=== PATIENT | female | born 1945 | race Caucasian/White ===

== ENCOUNTER 2019-08-23 09:58 | Emergency (ER) | payer MEDICARE ==
[~2019-08-23] VITALS: Ht 157.5 cm; Wt 105.5 kg
[~2019-08-23 09:58] MED LIST: AMLO1TAB PO; CANA100T PO; CHOL2000 PO; GARL200T PO; GLIM4TAB7 PO; IBUP-24 PO; LEVO175T2 PO; LOVA40TA76 PO; OMEG10006 PO; UBID100C7 PO; WEL625T PO
[2019-08-23 10:05] VITALS: BP 154/84
[2019-08-23] MEDS ORDERED: ketorolac tromethamine 15mg/ml inj. IM STA (11:49)
[2019-08-23] MEDS ORDERED: LIDOcaine 5% patch TP STA (11:49)
== END 2019-08-23 12:19 | disposition home or self-care (01) ==
LOC: ER 09:58
DX: S39.012A Strain of muscle, fascia and tendon of lower back, initial encounter (principal); E78.00 Pure hypercholesterolemia, unspecified; I10 Essential (primary) hypertension; E11.9 Type 2 diabetes mellitus without complications; Z90.710 Acquired absence of both cervix and uterus; Z98.890 Other specified postprocedural states; Z88.8 Allergy status to other drugs, medicaments and biological substances; Z91.011 Allergy to milk products; Z79.899 Other long term (current) drug therapy; X50.1XXA Overexertion from prolonged static or awkward postures, initial encounter; Y93.89 Activity, other specified; Y92.89 Other specified places as the place of occurrence of the external cause; Y99.9 Unspecified external cause status
CPT/HCPCS: 96372; 99284; J1885

== ENCOUNTER 2020-10-14 15:42 | Emergency (ER) | payer MEDICARE ==
[~2020-10-14] VITALS: Ht 157.5 cm; Wt 10.3 kg
[2020-10-14 20:05] VITALS: BP 177/80
== END 2020-10-14 20:07 | disposition home or self-care (01) ==
LOC: ER 15:42
DX: M25.511 Pain in right shoulder (principal); M54.9 Dorsalgia, unspecified; M25.551 Pain in right hip; E78.00 Pure hypercholesterolemia, unspecified; I10 Essential (primary) hypertension; E11.9 Type 2 diabetes mellitus without complications; Z98.891 History of uterine scar from previous surgery; Z90.710 Acquired absence of both cervix and uterus; Z98.890 Other specified postprocedural states; Z90.89 Acquired absence of other organs; Z91.040 Latex allergy status; Z88.8 Allergy status to other drugs, medicaments and biological substances; Z79.2 Long term (current) use of antibiotics; Z79.899 Other long term (current) drug therapy; W13.8XXA Fall from, out of or through other building or structure, initial encounter; Z91.81 History of falling; Y93.89 Activity, other specified; Y92.89 Other specified places as the place of occurrence of the external cause; Y99.8 Other external cause status
CPT/HCPCS: 73030; 73502; 99284

== ENCOUNTER 2021-05-07 05:25 | Inpatient (IN) | payer MEDICARE ==
[2021-05-01 14:36] LABS: BASOPHILS % (AUTO) 0.6 % (0-1); EOSINOPHILS # (AUTO) 0.1 X10'3 (0-0.9); EOSINOPHILS % (AUTO) 1.7 % (0-6); LYMPHOCYTES # (AUTO) 2.6 X10'3 (1.1-4.8); LYMPHOCYTES % (AUTO) 33.7 % (21-51); MEAN CORPUSCULAR HEMOGLOBIN 31.6 PG (27.0-31.0); MEAN CORPUSCULAR HGB CONC 34.8 g/dL (33.0-36.5); MEAN CORPUSCULAR VOLUME 90.7 FL (78-98); MEAN PLATELET VOLUME 8.3 FL (7.4-10.4); MONOCYTES # (AUTO) 0.7 X10'3 (0-0.9); MONOCYTES % (AUTO) 8.7 % (2-12); NEUTROPHILS # (AUTO) 4.3 X10'3 (1.8-7.7); NEUTROPHILS % (AUTO) 55.3 % (42-75); PRE OP HEMATOCRIT 36.1 % (35.0-45.0); PRE OP HEMOGLOBIN 12.6 g/dL (12.0-16.0); PRE OP PLATELET COUNT 280 X10'3 (140-440); RED BLOOD COUNT 3.98 X10'6 (4.20-5.60); RED CELL DISTRIBUTION WIDTH 13.2 % (11.5-14.5)
[2021-05-01 14:58] LABS: ALKALINE PHOSPHATASE 94 IU/L (46-116); BLOOD UREA NITROGEN 26 MG/DL (7-18); BUN/CREATININE RATIO 19.3 (6.6-38.0); CALCIUM 9.1 MG/DL (8.5-10.1); CHLORIDE 106 MMOL/L (99-107); CREATININE 1.35 MG/DL (0.40-0.90); PRE OP ALT 27 U/L (30-65); PRE OP ANION GAP 12 (8-16); PRE OP AST 14 U/L (10-37); PRE OP BILIRUB, TOTAL 0.3 MG/DL (0.0-1.0); PRE OP GLUCOSE 127 MG/DL (70-104); PRE OP POTASSIUM 3.9 MMOL/L (3.4-5.1); PRE OP SODIUM 143 MMOL/L (135-145); TOTAL CARBON DIOXIDE 25.5 MMOL/L (24-32); TOTAL PROTEIN 7.9 G/DL (6.4-8.2); eGFR 38 ML/MIN
[2021-05-01 15:23] LABS: HEMOGLOBIN A1C 7.1 % (4.5-6.2)
[2021-05-07] VITALS (15 sets, daily range): BP systolic 104–180; BP diastolic 51–77
[~2021-05-07] VITALS: Ht 160 cm; Wt 103.9 kg
[~2021-05-07 05:25] MED LIST changes: +AMLO10TA13 PO; -AMLO1TAB PO; -CANA100T PO; -CHOL2000 PO; -GARL200T PO; -GLIM4TAB7 PO; +HYDR25TA5 PO; -IBUP-24 PO; +INSU10VI SQ; +LEVO25TA7 PO; -LOVA40TA76 PO; -OMEG10006 PO; -UBID100C7 PO; +VALS320T17 PO; +ringers solution, lacted 1,000 ML IV SCH
[2021-05-07] MEDS ORDERED: cefazolin/dext.iso 2gm/50ml 50 ML IV ONE (05:30)
[2021-05-07] MEDS ORDERED: albuterol 2.5 MG/3 ML nebule NEB PRN (05:30)
[2021-05-07] MEDS ORDERED: VANCOMYCIN 1,500MG inj. 1,500 MG in normal saline 500ml IV soln 300 ML IV ONE (05:30)
[2021-05-07] MEDS ORDERED: tranexamic acid 650mg tablet PO ONE (05:30)
[2021-05-07] MEDS ORDERED: famotidine 20mg tablet PO ONE (05:30)
[2021-05-07] MEDS ORDERED: ketorolac trometh. 30mg/ml inj. ONE (06:36)
[2021-05-07] MEDS ORDERED: ROPIVAcaine 0.5% (5mg/ml) 30ml vial ONE ×2 (06:37→07:05)
[2021-05-07] MEDS ORDERED: ondansetron/PF 4mg/2ml inj ONE (07:00)
[2021-05-07] MEDS ORDERED: sevoflurane 250ml liquid IH ONE (07:00)
[2021-05-07] MEDS ORDERED: midazolam 1 mg/ML 2ml injection ONE (07:05)
[2021-05-07] MEDS ORDERED: fentaNYL/PF 50MCG/1 ML 2ML syringe ONE (07:05)
[2021-05-07] MEDS ORDERED: propofol inj 20 ML IV ONE (07:27)
[2021-05-07] MEDS ORDERED: LIDOcaine 1%/PF 5ML 10 MG/ML VIAL ONE (07:27)
[2021-05-07] MEDS ORDERED: dexamethasone sod phosphate 4mg/ml inj. ONE (07:39)
[2021-05-07] MEDS ORDERED: meperidine/PF 25mg/ml syringe IV PRN ×3 (08:25)
[2021-05-07] MEDS ORDERED: proCHLORperazine 10 MG/2 ml inj IV PRN (08:25)
[2021-05-07] MEDS ORDERED: morphine 2 MG/ML inj. syringe IV PRN (08:25)
[2021-05-07] MEDS ORDERED: ROPIVAcaine 0.2% (10 MG/5 ML) BOLUS INJECTION INTERSCALE PRN (08:25)
[2021-05-07] MEDS ORDERED: morphine 4 MG/ML inj SYRINge IV PRN (08:25)
[2021-05-07] MEDS ORDERED: ondansetron/PF 4mg/2ml inj IV PRN ×2 (08:25→09:05)
[2021-05-07] MEDS ORDERED: ringers solution, lacted 1,000 ML IV SCH (08:25)
[2021-05-07] MEDS ORDERED: oxyCODONE IR 5mg (immed. release) tablet PO PRN ×2 (09:05)
[2021-05-07] MEDS ORDERED: HYDROmorphone inj. 0.5 MG/0.5 ML DISP.SYRIN IV PRN (09:05)
[2021-05-07] MEDS ORDERED: diphenhydrAMINE 25mg capsule PO PRN ×2 (09:05)
[2021-05-07] MEDS ORDERED: acetaminophen 325mg tablet PO PRN (09:05)
[2021-05-07] MEDS ORDERED: magnesium hydroxide 30ml (MOM) UD suspension PO PRN (09:05)
[2021-05-07] MEDS ORDERED: HYDROmorphone 1 mg/ml syringe IV PRN (09:05)
[2021-05-07] MEDS ORDERED: bisacodyl 10mg suppository rectal RC PRN (09:05)
[2021-05-07] MEDS ORDERED: HYDROchlorothiazide 25mg tablet PO PRN (09:05)
--- NOTE | 2021-05-07 09:55 | NUR ---
Patient in room PAS IN 900. I have received report from Viviane Barragan RN and had the opportunity to ask questions and assume patient care.
[2021-05-07] MEDS ORDERED: ROPIVAcaine 0.2%/PF PUMP/bolus 545 ML INTERSCALE SCH (10:00)
--- NOTE | 2021-05-07 10:00 | NUR ---
Patient in room [facility] 346. I have received report from Viviane Barragan rn and had the opportunity to ask questions and assume patient care.
--- NOTE | 2021-05-07 10:00 | NUR ---
PT AWAKE ALERT VSS NO C/O PAIN DRESSING TO RIGHT SHOULDER CDI YONY PO'S MEETS CRITERIA TO DC TO ROOM REPORT CALLED TO ISAURA VASQUEZ PT TRANSPORT VIS BED TO ROOM. SON CALLED AND UPDATED ON CONDITION AND ROOM #. Addendum: 05/07/21 at 1001 by Viviane Tate RN Amended: Links added.
[2021-05-07] MEDS: acetaminophen 325mg tablet PO SCH ×2 (14:17→19:23)
[2021-05-07] MEDS: gabapentin 300mg capsule PO SCH ×2 (14:17→21:58)
[2021-05-07] MEDS: potassium cl 20mEq in 1/2 NS 1,000 ML IV SCH ×3 (14:18→23:42)
[2021-05-07] MEDS ORDERED: glucagon, human recombinant 1mg kit SUBCUT PRN (14:45)
[2021-05-07] MEDS ORDERED: dextrose 50%-water 50ml dispensing syringe IV PRN ×2 (14:45)
[2021-05-07] MEDS ORDERED: dextrose ORAL solution 15 GM/59 ML bottle PO PRN ×2 (14:45)
--- NOTE | 2021-05-07 15:00 | NUR ---
Noted pt with T2DM, well controlled for age with A1c 7.1%. DM education not warranted at this time. Will continue to follow. Addendum: 05/07/21 at [address] Amended: Links added.
--- NOTE | 2021-05-07 15:37 | NUR ---
took pt bs for lunch. it was 207 pt moved to level 2. when going to correct blood sugars, noticed there was the wrong insulin ordered. Called JODY Abraham and she ordered correct insulin replacements and said to start the insulin protocol tonight due to waiting for meds to be verified and entered.
[2021-05-07] MEDS: ceFAZolin/D5W- 1GM premix 50 ML IV SCH ×2 (17:15→23:48)
--- NOTE | 2021-05-07 18:30 | NUR ---
Problems reprioritized. Patient report given, questions answered & plan of care reviewed with Elder VASQUEZ.
[2021-05-07] MEDS: insulin Lispro (HumaLOG) vial - multi-dose SQ SCH ×2 (19:20→22:12)
[2021-05-07] MEDS ORDERED: vancomycin/NS 1 GM ADD-VANTAGE 250 ML IV SCH (20:00)
[2021-05-07] MEDS ORDERED: losartan 50mg tablet PO SCH (21:00)
[2021-05-07] MEDS ORDERED: sennosides 8.6mg tablet PO SCH (21:00)
[2021-05-07] MEDS ORDERED: insulin Lispro (HumaLOG) vial - multi-dose SQ SCH (21:00)
[2021-05-07] MEDS ORDERED: insulin glargine (Lantus) pen - multi-dose SQ SCH (21:00)
--- NOTE | 2021-05-07 22:58 | NUR ---
Student Medication Administration: For this medication-pass time frame, all medication were reviewed, dispensed, administered and documented per hospital policy by Iker Lamas and double checked all insulin administration.
--- NOTE | 2021-05-07 23:25 | NUR ---
Student documentation: I have reviewed interventions, assessments performed and documented by Iker Saldana [facility].
[2021-05-08 00:11] VITALS: BP 136/63
[2021-05-08] MEDS: acetaminophen 325mg tablet PO SCH ×3 (02:00→13:55)
[2021-05-08 03:45] VITALS: BP 157/63
[2021-05-08 06:21] LABS: BASOPHILS % (AUTO) 0.1 % (0-1); EOSINOPHILS % (AUTO) 0 % (0-6); HEMATOCRIT 30.3 % (35.0-45.0); HEMOGLOBIN 10.4 g/dl (12.0-16.0); LYMPHOCYTES # (AUTO) 1.6 X10'3 (1.1-4.8); LYMPHOCYTES % (AUTO) 13.3 % (21-51); MEAN CORPUSCULAR HEMOGLOBIN 31.4 PG (27.0-31.0); MEAN CORPUSCULAR HGB CONC 34.5 g/dL (33.0-36.5); MEAN PLATELET VOLUME 8.7 FL (7.4-10.4); MONOCYTES # (AUTO) 0.9 X10'3 (0-0.9); MONOCYTES % (AUTO) 7.6 % (2-12); NEUTROPHILS # (AUTO) 9.4 X10'3 (1.8-7.7); PLATELET COUNT 253 X10'3 (140-440); RED BLOOD COUNT 3.32 X10'6 (4.20-5.60); RED CELL DISTRIBUTION WIDTH 13.4 % (11.5-14.5)
[2021-05-08 06:43] LABS: ANION GAP 12 (8-16); CHLORIDE 103 MMOL/L (99-107); POTASSIUM 4.8 MMOL/L (3.5-5.1); SODIUM 136 MMOL/L (135-145); TOTAL CARBON DIOXIDE 21.4 MMOL/L (24-32)
--- NOTE | 2021-05-08 06:55 | NUR ---
Problems reprioritized. Patient report given, questions answered & plan of care reviewed with Nimo VASQUEZ.
[2021-05-08] MEDS: gabapentin 300mg capsule PO SCH ×2 (07:46→13:51)
[2021-05-08 08:00] VITALS: BP 135/47
[2021-05-08] MEDS ORDERED: levoTHYROXINE 175mcg tablet PO SCH (08:00)
[2021-05-08] MEDS ORDERED: colesevelam 625mg tablet PO SCH (08:00)
[2021-05-08] MEDS ORDERED: insulin Lispro (HumaLOG) vial - multi-dose SQ SCH (08:00)
[2021-05-08] MEDS ORDERED: amLODIPine 5mg tablet PO SCH (08:00)
[2021-05-08] MEDS ORDERED: aspirin 325mg tablet PO SCH (08:30)
[2021-05-08] MEDS: potassium cl 20mEq in 1/2 NS 1,000 ML IV SCH (09:05)
[2021-05-08] MEDS: insulin Lispro (HumaLOG) vial - multi-dose SQ SCH ×2 (09:11→14:00)
[2021-05-08 11:00] VITALS: BP 131/58
[2021-05-08 11:29] VITALS: BP 136/67
--- NOTE | 2021-05-08 15:35 | NUR ---
PT WAS STABLE FOR DISCHARGE. ALL DISCHARGE INFO WAS GONE OVER WITH NO FURTHER QUESTIONS. SHE HAD NO IV TO PREVIOUSLY IT BEING PULLED OUT. PT WAS WHEELED DOWN TO THE LOBBY AND PICKED UP BY HER SON. ALL BELONGINGS WENT WITH THE PT.
[2021-05-08] MEDS ORDERED: celeCOXIB 100mg capsule PO SCH (20:00)
[2021-05-09] MEDS ORDERED: levoTHYROXINE 25mcg tablet PO SCH (08:00)
[2021-05-09] MEDS ORDERED: acetaminophen 325mg tablet PO PRN (09:05)
== END 2021-05-08 15:34 | disposition home or self-care (01) | DRG 483 ==
LOC: UNDOADMIN 05:25 → PAS IN 05:25 → SUR 3N 10:15 → PAS IN 10:15
PROVIDERS: ADMIT Orthopaedic Surgery; ATTEND Orthopaedic Surgery
PROC: 0LS30ZZ Reposition Right Upper Arm Tendon, Open Approach (ICD-10-PCS; 2021-05-07)
PROC: 3E0T3BZ Introduction of Anesthetic Agent into Peripheral Nerves and Plexi, Percutaneous Approach (ICD-10-PCS; 2021-05-07)
PROC: 3E0T33Z Introduction of Anti-inflammatory into Peripheral Nerves and Plexi, Percutaneous Approach (ICD-10-PCS; 2021-05-07)
PROC: 0RRJ00Z Replacement of Right Shoulder Joint with Reverse Ball and Socket Synthetic Substitute, Open Approach (ICD-10-PCS; principal; 2021-05-07 07:00)
DX: M19.011 Primary osteoarthritis, right shoulder (principal); D62 Acute posthemorrhagic anemia; M75.121 Complete rotator cuff tear or rupture of right shoulder, not specified as traumatic; M75.21 Bicipital tendinitis, right shoulder; Z79.899 Other long term (current) drug therapy; Z79.4 Long term (current) use of insulin
CPT/HCPCS: 36415; 80051; 80053; 82948; 83036; 84443; 85025; 87081; 94760; 97110; 97161; 97530; A4618; A7000; C1776; G0378; J0690; J1100; J1815; J1885; J2250; J2405; J2704; J2795; J3010; J3370; J3480; J7040; J7120; U0003; U0005

== ENCOUNTER 2024-10-17 09:50 | Inpatient (IN) | payer MEDICARE ==
[~2024-10-17] VITALS: Ht 157.5 cm; Wt 111.4 kg
[~2024-10-17 09:50] MED LIST changes: +COLE625T29 PO; -WEL625T PO; -ringers solution, lacted 1,000 ML IV SCH
[2024-10-17 10:32] LABS: BASOPHILS % (AUTO) 0.5 % (0-1); EOSINOPHILS # (AUTO) 0.3 X10'3 (0-0.9); EOSINOPHILS % (AUTO) 5.4 % (0-6); HEMATOCRIT 30.9 % (35.0-45.0); HEMOGLOBIN 10.4 g/dl (12.0-16.0); LYMPHOCYTES # (AUTO) 1.4 X10'3 (1.1-4.8); LYMPHOCYTES % (AUTO) 23.5 % (21-51); MEAN CORPUSCULAR HEMOGLOBIN 30.5 PG (27.0-31.0); MEAN CORPUSCULAR HGB CONC 33.5 g/dL (33.0-36.5); MEAN CORPUSCULAR VOLUME 91.1 FL (78-98); MEAN PLATELET VOLUME 8.4 FL (7.4-10.4); MONOCYTES # (AUTO) 0.6 X10'3 (0-0.9); MONOCYTES % (AUTO) 10.9 % (2-12); NEUTROPHILS # (AUTO) 3.5 X10'3 (1.8-7.7); NEUTROPHILS % (AUTO) 59.7 % (42-75); PLATELET COUNT 210 X10'3 (140-440); RED BLOOD COUNT 3.39 X10'6 (4.20-5.60); RED CELL DISTRIBUTION WIDTH 13.8 % (11.5-14.5); WHITE BLOOD COUNT 5.9 X10'3 (4.5-11.0)
[2024-10-17 10:40] LABS: ALANINE AMINOTRANSFERASE 22 U/L (12-78); ALBUMIN 3.7 G/DL (3.4-5.0); ALBUMIN/GLOBULIN RATIO 0.9 (1.1-1.5); ALKALINE PHOSPHATASE 75 IU/L (46-116); ANION GAP 8 (8-16); ASPARTATE AMINO TRANSFERASE 18 U/L (10-37); BILIRUBIN,TOTAL 0.6 MG/DL (0.1-1.0); BLOOD UREA NITROGEN 31 MG/DL (7-18); BUN/CREATININE RATIO 24.4 (10.0-20.0); CALCIUM 8.9 MG/DL (8.5-10.1); CHLORIDE 104 MMOL/L (99-107); CREATININE 1.27 MG/DL (0.40-0.90); GLUCOSE 110 MG/DL (70-104); POTASSIUM 4.4 MMOL/L (3.5-5.1); SODIUM 138 MMOL/L (135-145); TOTAL PROTEIN 7.6 G/DL (6.4-8.2); eCRCL 27 ML/MIN; eGFR 40 ML/MIN
[2024-10-17 10:47] LABS: PRO BRAIN NATRIURETIC PEPTIDE 891 PG/ML (0-450)
[2024-10-17] MEDS: furosemide 10 MG/1 ML 10ml inj IV ONE (11:26)
[2024-10-17] MEDS ORDERED: potassium Cl 40MEQ/1/2NS 520ml 520 ML IV PRN (13:25)
[2024-10-17] MEDS ORDERED: acetaminophen 325mg tablet PO PRN ×2 (13:25)
[2024-10-17] MEDS ORDERED: magnesium Cl slow-release 64mg tablet PO PRN (13:25)
[2024-10-17] MEDS ORDERED: ondansetron/PF 4mg/2ml inj IV PRN (13:25)
[2024-10-17] MEDS ORDERED: magnesium sulf-water 2g/50mL 50 ML IV PRN (13:25)
[2024-10-17] MEDS ORDERED: magnesium sulf-water 4G/100mL 100 ML IV PRN (13:25)
[2024-10-17] MEDS ORDERED: potassium Cl 20 mEq SR tablet PO PRN ×2 (13:25)
[2024-10-17] MEDS ORDERED: HYDROcodone/acetaminophen 5mg/325mg tablet PO PRN (13:25)
[2024-10-17] MEDS ORDERED: DEXTROSE 15 GM of carb/4 tabs (each vial/BOTTLE has 4 tablets) PO PRN ×2 (13:50)
[2024-10-17] MEDS ORDERED: dextrose 50%-water 50ml dispensing syringe IV PRN ×2 (13:50)
[2024-10-17] MEDS ORDERED: glucagon, human recombinant 1mg kit SUBCUT PRN (13:50)
[2024-10-17] MEDS ORDERED: CLOP75TA34 PO (15:25)
[2024-10-17] MEDS ORDERED: ROSU20TA98 PO (15:25)
[2024-10-17] MEDS ORDERED: VALS160T30 PO (15:25)
[2024-10-17] MEDS ORDERED: CARV-50 PO (15:25)
[2024-10-17 15:50] LABS: HEMOGLOBIN A1C 6.6 % (4.5-6.2)
[2024-10-17 15:57] LABS: THYROID STIMULATING HORMONE 0.23 ulU/ml (0.34-4.50)
[2024-10-17] MEDS: INSULIN LISPRO 100 UNIT/ML INSULN.PEN MULTI-DOSE SQ SCH (17:00)
[2024-10-17 17:19] LABS: BILIRUBIN,URINE NEGATIVE (Neg); CLARITY,URINE CLEAR (Clear); COLOR,URINE STRAW (Yellow); GLUCOSE, URINE NEGATIVE (Neg); KETONES,URINE NEGATIVE (Neg); LEUKOCYTE ESTERASE ,URINE NEGATIVE (Neg); NITRITES, URINE NEGATIVE (Neg); OCCULT BLOOD,URINE SMALL (Neg); PH,URINE 5.5 (4.8-8.0); PROTEIN,URINE NEGATIVE (Neg); UROBILINOGEN,URINE 0.2 E.U/dL (0.2-1.0)
[2024-10-17 17:30] LABS: UA COLLECTION TYPE CLN CATCH MIDSTREAM
[2024-10-17 17:32] LABS: BACTERIA,URINE NONE SEEN /HPF (Neg); SQUAMOUS EPITHELIAL CELL,UR NONE SEEN /LPF (FEW); WBC,URINE NONE SEEN /HPF (0-4)
[2024-10-17 17:33] LABS: MUCUS STRANDS NONE SEEN /LPF (Neg)
[2024-10-17 18:00] VITALS: BP 114/60; PULSE 62; RESP 11; TEMP 97.1; O2SAT 95
[2024-10-17] MEDS: furosemide 20 MG/2 ML vial IV SCH (19:32)
[2024-10-17] MEDS: heparin, porcine 5000 units/ml vial SQ SCH (19:33)
[2024-10-17] MEDS: carVEDilol 12.5mg tablet PO SCH (19:34)
[2024-10-17] MEDS: morphine 2 MG/ML inj. syringe IV PRN (19:35)
[2024-10-17 20:00] VITALS: RESP 15; O2SAT 96
[2024-10-17 22:00] VITALS: BP 135/60; PULSE 59; RESP 20; TEMP 98.5; O2SAT 99
[2024-10-18] VITALS (8 sets, daily range): BP systolic 107–131; BP diastolic 50–78; PULSE 59–70; RESP 18–60; TEMP 97–98.6; O2SAT 94–99
[2024-10-18 07:05] LABS: BASOPHILS % (AUTO) 0.4 % (0-1); EOSINOPHILS # (AUTO) 0.2 X10'3 (0-0.9); EOSINOPHILS % (AUTO) 4.4 % (0-6); HEMATOCRIT 27.8 % (35.0-45.0); HEMOGLOBIN 9.4 g/dl (12.0-16.0); LYMPHOCYTES # (AUTO) 0.9 X10'3 (1.1-4.8); LYMPHOCYTES % (AUTO) 19.1 % (21-51); MEAN CORPUSCULAR HEMOGLOBIN 30.7 PG (27.0-31.0); MEAN CORPUSCULAR HGB CONC 33.7 g/dL (33.0-36.5); MEAN CORPUSCULAR VOLUME 91.1 FL (78-98); MEAN PLATELET VOLUME 8.4 FL (7.4-10.4); MONOCYTES # (AUTO) 0.7 X10'3 (0-0.9); MONOCYTES % (AUTO) 13.4 % (2-12); NEUTROPHILS # (AUTO) 3.1 X10'3 (1.8-7.7); NEUTROPHILS % (AUTO) 62.7 % (42-75); PLATELET COUNT 198 X10'3 (140-440); RED BLOOD COUNT 3.06 X10'6 (4.20-5.60); RED CELL DISTRIBUTION WIDTH 13.3 % (11.5-14.5)
[2024-10-18] MEDS: atorvastatin 20mg tablet PO SCH (08:05)
[2024-10-18] MEDS: clopidogrel 75mg tablet PO SCH (08:05)
[2024-10-18] MEDS: levoTHYROXINE 175mcg tablet PO SCH (08:06)
[2024-10-18] MEDS: losartan 50mg tablet PO SCH (08:08)
[2024-10-18 08:21] LABS: % IRON SATURATION 20 % (11-46); IRON 48 UG/DL (49-151); TOTAL IRON BINDING CAPACITY 235 UG/DL (259-388)
[2024-10-18 08:27] LABS: ALBUMIN 3.3 G/DL (3.4-5.0); ANION GAP 9 (8-16); BLOOD UREA NITROGEN 28 MG/DL (7-18); BUN/CREATININE RATIO 23.7 (10.0-20.0); CALCIUM 8.8 MG/DL (8.5-10.1); CHLORIDE 103 MMOL/L (99-107); CHOL/HDL RATIO 1.4 (0.00-4.99); CHOLESTEROL 134 MG/DL (0-200); CREATININE 1.18 MG/DL (0.40-0.90); FERRITIN 251 NG/ML (8-252); GLUCOSE 109 MG/DL (70-104); HDL CHOLESTEROL 96 MG/DL (35-60); LDL CHOLESTEROL 23 MG/DL (50-100); POTASSIUM 4.3 MMOL/L (3.5-5.1); SODIUM 138 MMOL/L (135-145); TOTAL CARBON DIOXIDE 25.6 MMOL/L (24-32); TRIGLYCERIDES 61 MG/DL (20-135); eCRCL 30 ML/MIN; eGFR 44 ML/MIN
[2024-10-18] MEDS: colesevelam 625mg tablet PO SCH (08:27)
[2024-10-18] MEDS: nystatin 15 GM powder TP SCH (21:37)
[2024-10-18] MEDS ORDERED: carvedilol 6.25mg tablet PO SCH (21:52)
[2024-10-18] MEDS: carvedilol 6.25mg tablet PO SCH (22:58)
[2024-10-19 02:00] VITALS: BP 137/55; PULSE 63; RESP 18; TEMP 98.4; O2SAT 100
[2024-10-19 06:00] VITALS: BP 127/53; PULSE 60; RESP 14; TEMP 97.7; O2SAT 93
[2024-10-19 06:48] LABS: BASOPHILS % (AUTO) 0.7 % (0-1); EOSINOPHILS # (AUTO) 0.2 X10'3 (0-0.9); HEMATOCRIT 27.6 % (35.0-45.0); HEMOGLOBIN 9.3 g/dl (12.0-16.0); LYMPHOCYTES # (AUTO) 1.2 X10'3 (1.1-4.8); LYMPHOCYTES % (AUTO) 21.9 % (21-51); MEAN CORPUSCULAR HEMOGLOBIN 30.6 PG (27.0-31.0); MEAN CORPUSCULAR HGB CONC 33.7 g/dL (33.0-36.5); MEAN CORPUSCULAR VOLUME 90.6 FL (78-98); MEAN PLATELET VOLUME 8.4 FL (7.4-10.4); MONOCYTES # (AUTO) 0.7 X10'3 (0-0.9); MONOCYTES % (AUTO) 13.1 % (2-12); NEUTROPHILS # (AUTO) 3.4 X10'3 (1.8-7.7); NEUTROPHILS % (AUTO) 60.3 % (42-75); PLATELET COUNT 184 X10'3 (140-440); RED BLOOD COUNT 3.05 X10'6 (4.20-5.60); RED CELL DISTRIBUTION WIDTH 13.4 % (11.5-14.5); WHITE BLOOD COUNT 5.7 X10'3 (4.5-11.0)
[2024-10-19 06:54] LABS: ALBUMIN 3.2 G/DL (3.4-5.0); ANION GAP 8 (8-16); BLOOD UREA NITROGEN 29 MG/DL (7-18); BUN/CREATININE RATIO 26.9 (10.0-20.0); CALCIUM 9.2 MG/DL (8.5-10.1); CHLORIDE 102 MMOL/L (99-107); CREATININE 1.08 MG/DL (0.40-0.90); GLUCOSE 120 MG/DL (70-104); POTASSIUM 4.1 MMOL/L (3.5-5.1); SODIUM 139 MMOL/L (135-145); TOTAL CARBON DIOXIDE 28.9 MMOL/L (24-32); eCRCL 32 ML/MIN; eGFR 49 ML/MIN
[2024-10-19] MEDS: levoTHYROXINE 75mcg tablet PO SCH (07:34)
[2024-10-19] MEDS: EMPAGLIFLOZIN 10 MG TABLET PO SCH (07:35)
[2024-10-19 08:00] VITALS: RESP 14; O2SAT 93
[2024-10-19] MEDS: spironolactone 25 MG tablet PO SCH (09:17)
[2024-10-19 11:00] VITALS: BP 110/49; PULSE 62; RESP 18; TEMP 97.6; O2SAT 96
[2024-10-19] MEDS ORDERED: LEVO150T8 PO (12:29)
[2024-10-19] MEDS ORDERED: EMPA10TA PO (12:29)
[2024-10-19] MEDS ORDERED: SPIR25TA PO (12:29)
[2024-10-19] MEDS ORDERED: NYSPWD TP (12:29)
[2024-10-19] MEDS ORDERED: FURO-150 PO (12:30)
[2024-10-19] MEDS ORDERED: COMP1EAC TOP (12:34)
[2024-10-19 13:46] VITALS: RESP 18; O2SAT 97
== END 2024-10-19 14:45 | disposition home health service (06) | DRG 291 ==
LOC: ER 09:51 → ED HOLD 13:29 → PCU 3S 17:48
PROVIDERS: ADMIT Internal Medicine; ATTEND Internal Medicine
DX: I13.0 Hypertensive heart and chronic kidney disease with heart failure and stage 1 through stage 4 chronic kidney disease, or unspecified chronic kidney disease (principal); I50.33 Acute on chronic diastolic (congestive) heart failure; N18.30 Chronic kidney disease, stage 3 unspecified; E78.00 Pure hypercholesterolemia, unspecified; E11.22 Type 2 diabetes mellitus with diabetic chronic kidney disease; Z66 Do not resuscitate; D64.9 Anemia, unspecified; E03.9 Hypothyroidism, unspecified; Z91.040 Latex allergy status; Z91.018 Allergy to other foods; Z79.01 Long term (current) use of anticoagulants; Z88.8 Allergy status to other drugs, medicaments and biological substances; Z79.4 Long term (current) use of insulin; Z79.899 Other long term (current) drug therapy; Z90.710 Acquired absence of both cervix and uterus; Z98.891 History of uterine scar from previous surgery
CPT/HCPCS: 36415; 71045; 80048; 80053; 80061; 81001; 82728; 82948; 83036; 83540; 83550; 83880; 84443; 84466; 84484; 85025; 87081; 93005; 93306; 93970; 96365; 96372; 96375; 96376; 99285; A4615; A6258; G0378; J1644; J1815; J1940; J2270

== ENCOUNTER 2025-01-05 15:32 | Outpatient (CLI) | payer MEDICARE ==
[~2025-01-05 15:32] MED LIST changes: +CARV-50 PO; +CLOP75TA34 PO; +COMP1EAC TOP; +EMPA10TA PO; +FURO-150 PO; -HYDR25TA5 PO; +LEVO150T8 PO; -LEVO175T2 PO; -LEVO25TA7 PO; +NYSPWD TP; +ROSU20TA98 PO; +SPIR25TA PO; +VALS160T30 PO; -VALS320T17 PO
--- NOTE | 2025-01-06 07:24 | RADIOLOGY REPORT ---
ULTRASOUND SOFT TISSUE left ring finger CLINICAL INDICATION: MASS FINGER OF L HAND TECHNIQUE: Multiple real time sonographic images of the left ring finger were obtained. COMPARISON: None. FINDINGS: Targeted ultrasound of the left ring finger demonstrate 2 complex cystic structures, the larger measu ring 0.6 x 0.6 cm in the smaller measuring 0.5 x 0.5 cm. IMPRESSION: 1. 2 complex cystic structures in the soft tissues of the left ring finger. MRI of the left ring fin daniel without and with intravenous contrast is recommended for further evaluation.
== END 2025-01-05 23:59 | disposition home or self-care (01) ==
LOC: US 15:32
PROVIDERS: ATTEND Physician Assistant Surgical
DX: R22.32 Localized swelling, mass and lump, left upper limb (principal)
CPT/HCPCS: 76882